=== PATIENT | male | born 1945 | race Caucasian/White ===

== ENCOUNTER → 2017-06-16 | Outpatient (CLI) | payer OTHER | LOC: BRMIMAGING 14:10 | PROVIDERS: ATTEND Physician Assistant Medical | DX: M43.12 Spondylolisthesis, cervical region (principal); M19.032 Primary osteoarthritis, left wrist; M19.031 Primary osteoarthritis, right wrist; I65.23 Occlusion and stenosis of bilateral carotid arteries | CPT/HCPCS: 72050-PO; 73110-PO ==